=== PATIENT | male | born 2000 | race Caucasian/White ===

== ENCOUNTER 2024-06-17 03:40 | Inpatient (IN) | payer OTHER, SELFPAY ==
[~2024-06-17] VITALS: Ht 182.9 cm; Wt 84.0 kg
[2024-06-17 04:28] LABS: HEMATOCRIT 41.7 % (42.0-52.0); HEMOGLOBIN 14.9 g/dl (13.5-17.5); MEAN CORPUSCULAR HEMOGLOBIN 30.8 pg (27.0-33.0); MEAN CORPUSCULAR HGB CONC 35.7 g/dl (32.0-36.5); MEAN CORPUSCULAR VOLUME 86.3 fl (80.0-96.0); PLATELET COUNT, AUTOMATED 214 10^3/uL (150-450); RED BLOOD COUNT 4.83 10^6/uL (4.30-6.10); WHITE BLOOD COUNT 7.7 10^3/uL (4.0-10.0)
[2024-06-17 04:50] LABS: AMPHETAMINES LEVEL URINE NEGATIVE (NEGATIVE); BARBITURATES URINE NEGATIVE (NEGATIVE); BENZODIAZEPINES URINE NEGATIVE (NEGATIVE)
[2024-06-17 04:51] LABS: METHADONE URINE NEGATIVE (NEGATIVE); OPIATES URINE NEGATIVE (NEGATIVE); PHENCYCLIDINE URINE NEGATIVE (NEGATIVE)
[2024-06-17 04:54] LABS: CANNABINOIDS URINE POSITIVE (NEGATIVE); COCAINE METABOLITE URINE POSITIVE (NEGATIVE); ETHYL ALCOHOL (ETHANOL) 0.123 % (0.000-0.010)
[2024-06-17 04:56] LABS: ALBUMIN 4.1 G/DL (3.2-5.2); ALKALINE PHOSPHATASE 70 U/L (40-129); ALT/SGPT 16 U/L (7.0-40); AST/SGOT 21 U/L (<34); BILIRUBIN,DIRECT < 0.1 MG/DL (<0.4); BILIRUBIN,TOTAL 0.2 MG/DL (0.3-1.2); BLOOD UREA NITROGEN 11 MG/DL (9-23); CALCIUM LEVEL 8.8 MG/DL (8.5-10.1); CARBON DIOXIDE LEVEL 26 MMOL/L (20-31); CHLORIDE LEVEL 109 MMOL/L (98-107); CREATININE FOR GFR 0.72 MG/DL (0.70-1.30); GLOMERULAR FILTRATION RATE > 60.0 (>60); GLUCOSE, FASTING 104 MG/DL (60-100); SALICYLATE LEVEL < 3.0 MG/DL (<30); SODIUM LEVEL 146 MMOL/L (136-145); TOTAL PROTEIN 7.2 G/DL (5.7-8.2)
[2024-06-17 04:58] LABS: THYROID STIMULATING HORMONE 1.499 uIU/ML (0.55-4.78)
[2024-06-17] MEDS ORDERED: IBUPROFEN 400MG TAB PO PRN (06:35)
[2024-06-17] MEDS ORDERED: ACETAMINOPHEN 325 MG TAB PO PRN (06:35)
[2024-06-17] MEDS ORDERED: MAALOX 30 ML SUSP *UDC PO PRN (06:35)
[2024-06-17] MEDS ORDERED: MOM 30ML SUSPENSION UDC PO PRN (06:35)
[2024-06-17] MEDS ORDERED: LORazepam 2 MG TAB PO PRN (06:35)
[2024-06-17] MEDS: MULTIVITAMINS/MINERALS THERAP 1 TAB PO SCH (07:57)
[2024-06-17] MEDS: FOLIC ACID 1MG TAB PO SCH (07:57)
[2024-06-17] MEDS: THIAMINE 100 MG TAB PO SCH (07:58)
[2024-06-17] MEDS: NICOTINE 14 MG/24 HR TRANSDERMAL TD SCH (08:00)
[2024-06-17 08:30] VITALS: BP 116/80; TEMP 96.9; O2SAT 99
[2024-06-17] MEDS ORDERED: SERTRALINE HCL 50 MG TAB PO SCH (09:00)
[2024-06-17] MEDS ORDERED: OLANZapine INTRAMUSCULAR 10MG VIAL IM PRN (13:45)
[2024-06-17 14:00] VITALS: BP 118/78
[2024-06-17] MEDS ORDERED: SERT50TA29 PO (14:14)
[2024-06-17] MEDS ORDERED: HOME MED LIST COMPLETE! XX SCH (14:15)
[2024-06-17] MEDS: LORazepam 1 MG TAB PO PRN (20:29)
[2024-06-17] MEDS: traZODone 50 MG TAB PO PRN (20:29)
[2024-06-17] MEDS: busPIRone 10 MG TAB PO SCH (20:29)
[2024-06-17] MEDS: SERTRALINE HCL 50 MG TAB PO SCH (20:30)
[2024-06-17 20:31] VITALS: BP 144/95
[2024-06-17 20:32] VITALS: BP 144/95; TEMP 97.2; O2SAT 100
[2024-06-18 05:08] VITALS: BP 113/54
[2024-06-18 06:10] VITALS: BP 124/73; TEMP 97.4; O2SAT 98
[2024-06-18] MEDS: diphenhydrAMINE 25MG CAP PO PRN (12:34)
[2024-06-18 13:00] VITALS: BP 139/77
[2024-06-18 15:56] VITALS: BP 139/77; TEMP 98; O2SAT 100
[2024-06-18 20:46] VITALS: BP 108/62
[2024-06-19 06:57] VITALS: BP 123/60; TEMP 97.3; O2SAT 97
[2024-06-19 15:17] VITALS: BP 149/77; TEMP 98.6; O2SAT 98
[2024-06-20 06:55] VITALS: BP 119/78; TEMP 97.1; O2SAT 99
[2024-06-20] MEDS ORDERED: SERT50TA29 PO (12:29)
[2024-06-20] MEDS ORDERED: TRAZ-252 PO (12:29)
[2024-06-20] MEDS ORDERED: HYDR-3363 PO (12:29)
[2024-06-20] MEDS ORDERED: BUSP10TA PO (12:29)
== END 2024-06-20 13:29 | disposition home or self-care (01) | DRG 885 ==
LOC: M ED 03:40 → M ED INP 06:35 → M PSY 08:22
PROVIDERS: ADMIT Psychiatry & Neurology Neurology; ATTEND Psychiatry & Neurology Psychiatry
DX: F33.1 Major depressive disorder, recurrent, moderate (principal); F14.20 Cocaine dependence, uncomplicated; R45.851 Suicidal ideations; F41.9 Anxiety disorder, unspecified; Z88.0 Allergy status to penicillin; F10.20 Alcohol dependence, uncomplicated; F12.20 Cannabis dependence, uncomplicated